=== PATIENT | female | born 2000 | race Caucasian/White ===

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

== ENCOUNTER 2018-03-10 09:10 | Emergency (ER) | payer BC ==
[2018-03-10 09:30] VITALS: BP 142/64; PULSE 94; TEMP 98.5; BMI 33.3
[2018-03-10] MEDS ORDERED: IBUPROFEN 400 MG TABLET (FP) PO ONE ×2 (10:09→10:11)
--- NOTE | 2018-03-10 10:09 | PDOC ---
History of Present Illness - General Chief Complaint: Pain Stated Complaint: PAIN,LT FT Time Seen by Provider: 03/10/18 09:59 Past History - Past Medical History Allergies/Adverse Reactions: Allergies Allergy/AdvReac Type Severity Reaction Status Date / Time No Known Allergies Allergy Verified 03/10/18 09:27 Home Medications: Ambulatory Orders Ibuprofen 800 mg PO TID #30 tablet 03/10/18 COPD: No DVT: No - Immunization History Immunization Up to Date: Yes - Suicide/Smoking/Psychosocial Hx Smoking History: Never smoked Have you smoked in the past 12 months: No Hx Alcohol Use: No Drug/Substance Use Hx: No Substance Use Type: None *Physical Exam - Vital Signs Last Vital Signs Temp Pulse Resp BP Pulse Ox 98.5 F 94 H 18 142/64 99 03/10/18 09:27 03/10/18 09:27 03/10/18 09:27 03/10/18 09:27 03/10/18 09:27 Moderate Sedation - Procedure Monitoring Vital Signs: Procedure Monitoring Vital Signs Temperature 98.5 F 03/10/18 09:27 Pulse Rate 94 H 03/10/18 09:27 Respiratory Rate 18 03/10/18 09:27 Blood Pressure 142/64 03/10/18 09:27 O2 Sat by Pulse Oximetry (%) 99 03/10/18 09:27 *DC/Admit/Observation/Transfer Diagnosis at time of Disposition: Foot pain, left - Discharge Dispostion Disposition: HOME Condition at time of disposition: Stable Decision to Admit order: No - Referrals Referrals: Arvind Lawson MD [Staff Physician] - - Patient Instructions Printed Discharge Instructions: DI for Foot Pain Additional Instructions: X-rays negative for fracture today. It is unclear as to the cause of your foot pain. You may take 800mg of motrin every 8 hours as needed for pain Please wear the Stewart wrap for comfort. Keep the foot elevated while resting. Please follow up with podiatry this week. Return to the emergency department if the numbness and tingling goes up you leg , if he develop worsening pain, or if you have any changes in your symptoms. - Post Discharge Activity Forms/Work/School Notes: Back to Work
== END 2018-03-10 11:57 | disposition home or self-care (01) ==
LOC: JERFT 09:10
DX: M79.672 Pain in left foot (principal)
CPT/HCPCS: 73630-TC-LT; 99281-25

== ENCOUNTER 2018-04-21 16:17 | Emergency (ER) | payer BC ==
[2018-04-21 16:32] VITALS: BP 121/70; PULSE 94; TEMP 99.1; BMI 32.8
--- NOTE | 2018-04-21 16:35 | PDOC ---
Rapid Medical Evaluation Chief Complaint: Allergic Reaction Time Seen by Provider: 04/21/18 16:32 Medical Evaluation: Allergies Allergy/AdvReac Type Severity Reaction Status Date / Time No Known Allergies Allergy Verified 04/21/18 16:29 Vital Signs Temp Pulse Resp BP Pulse Ox 99.1 F 94 H 18 121/70 99 04/21/18 16:30 04/21/18 16:30 04/21/18 16:30 04/21/18 16:30 04/21/18 16:30 04/21/18 16:33 I have performed a brief in-person evaluation of this patient. The patient presents with a chief complaint of: Rash under bilateral breasts. I have ordered the following: Fingerstick, UCG The patient will proceed to the ED for further evaluation. Discharge Disposition - Diagnosis Rash - Referrals - Patient Instructions - Post Discharge Activity
--- NOTE | 2018-04-21 17:01 | PDOC ---
History of Present Illness - General Chief Complaint: Allergic Reaction Stated Complaint: RASH Time Seen by Provider: 04/21/18 16:32 History Source: Patient Exam Limitations: No Limitations Past History - Past Medical History Allergies/Adverse Reactions: Allergies Allergy/AdvReac Type Severity Reaction Status Date / Time No Known Allergies Allergy Verified 04/21/18 16:29 Home Medications: Ambulatory Orders Clotrimazole [Lotrimin 1% Cream -] 1 applic TP BID #1 tube 04/21/18 Tramadol HCl [Ultram] 50 mg PO ASDIR 04/21/18 Asthma: No Cancer: No Cardiac Disorders: No COPD: No DVT: No Diabetes: No HTN: No Seizures: No Thyroid Disease: No - Immunization History Immunization Up to Date: Yes - Suicide/Smoking/Psychosocial Hx Smoking Status: No Smoking History: Never smoked Have you smoked in the past 12 months: No Number of Cigarettes Smoked Daily: 0 Hx Alcohol Use: No Drug/Substance Use Hx: No Substance Use Type: None Hx Substance Use Treatment: No *Physical Exam - Vital Signs Last Vital Signs Temp Pulse Resp BP Pulse Ox 99.1 F 94 H 18 121/70 99 04/21/18 16:30 04/21/18 16:30 04/21/18 16:30 04/21/18 16:30 04/21/18 16:30 - Physical Exam General Appearance: No: Apparent Distress Integumentary: positive: Other (Scaly rash underneath B/L breasts; no rash noted anywhere else on body) Neurologic: positive: Alert, Normal Mood/Affect Moderate Sedation - Procedure Monitoring Vital Signs: Procedure Monitoring Vital Signs Temperature 99.1 F 04/21/18 16:30 Pulse Rate 94 H 04/21/18 16:30 Respiratory Rate 18 04/21/18 16:30 Blood Pressure 121/70 04/21/18 16:30 O2 Sat by Pulse Oximetry (%) 99 04/21/18 16:30 Medical Decision Making - Medical Decision Making 18 y/o F with no sig pmh presents with rash underneath B/L breasts x 1 month, initially started off small but then grew bigger. [place] now pruritic. Has not seen anyone regarding the rash. Denies fever, sob, cp, abd pain, n/v/d. Only medication that patient is currently on is Tramadol. Appears as fungal rash Will check FS 04/21/18 16:52 FS 138 stable for dc 04/21/18 17:25 *DC/Admit/Observation/Transfer Diagnosis at time of Disposition: Cutaneous candidiasis - Discharge Dispostion Disposition: HOME Condition at time of disposition: Stable Decision to Admit order: No - Prescriptions Prescriptions: Clotrimazole [Lotrimin 1% Cream -] 1 applic TP BID #1 tube - Referrals - Patient Instructions Printed Discharge Instructions: DI for Yeast Infection-Skin Additional Instructions: Thank you for choosing . It was a pleasure taking care of you. Likely you have fungal rash Apply the prescribed topical medication twice a week The rash should start to improve Be sure to clean around site well Follow-up your PCP in 2-3 days. Return to the Emergency Department if your symptoms worsen or persist, you have fever, worsening appearance of rash or other concerning symptoms. - Post Discharge Activity
== END 2018-04-21 17:53 | disposition home or self-care (01) ==
LOC: JERFT 16:17
DX: B37.2 Candidiasis of skin and nail (principal)
CPT/HCPCS: 82962; 99281-25

== ENCOUNTER 2018-07-08 11:12 | Emergency (ER) | payer BC ==
[2018-07-08 11:28] VITALS: BP 114/65; PULSE 86; TEMP 98.4; BMI 25.0
[2018-07-08] MEDS ORDERED: DEXAMETHASONE LIQUID 0.5 MG/5 ML 240 ML BULK BOTTLE PO ONE (12:20)
[2018-07-08] MEDS ORDERED: DEXAMETHASONE SOD PHOSPHATE 10 MG/1 ML VIAL ONE (12:23)
[2018-07-08] MEDS ORDERED: diphenhydrAMINE HCL 50 MG CAPSULE PO ONE (12:24)
[2018-07-08] MEDS ORDERED: diphenhydrAMINE HCL 25 MG CAPSULE (FP) PO ONE (12:25)
--- NOTE | 2018-07-08 12:26 | PDOC ---
History of Present Illness - General Chief Complaint: Rash Stated Complaint: RASH ON ARMS Time Seen by Provider: 07/08/18 12:07 - History of Present Illness Initial Comments: 07/08/18 12:21 1-year-old female without comorbidities presents for evaluation of rash times one day without systemic symptoms after starting a new soap Past History - Past Medical History Allergies/Adverse Reactions: Allergies Allergy/AdvReac Type Severity Reaction Status Date / Time No Known Allergies Allergy Verified 07/08/18 11:28 Home Medications: Ambulatory Orders Mometasone Furoate [Elocon] 45 gm TP BID #1 cream..g. 07/08/18 Asthma: No Cancer: No Cardiac Disorders: No COPD: No DVT: No Diabetes: No HTN: No Seizures: No Thyroid Disease: No - Immunization History Immunization Up to Date: Yes - Suicide/Smoking/Psychosocial Hx Smoking Status: No Smoking History: Never smoked Have you smoked in the past 12 months: No Number of Cigarettes Smoked Daily: 0 Information on smoking cessation initiated: No Hx Alcohol Use: No Drug/Substance Use Hx: No Substance Use Type: None Hx Substance Use Treatment: No Review of Systems - Review of Systems Constitutional: No: Fever Integumentary: Yes: Pruritus, Rash *Physical Exam - Vital Signs Last Vital Signs Temp Pulse Resp BP Pulse Ox 98.4 F 86 18 114/65 99 07/08/18 11:24 07/08/18 11:24 07/08/18 11:24 07/08/18 11:24 07/08/18 11:24 - Physical Exam Comments: 07/08/18 12:23 HEAD: NC/AT EYES: Conjuntiva clear Ears: Canals and TM's normal NOSE: No d/c THROAT: Moist mucous membrances, oral pharanx clear, uvula midline NECK: Supple without adenopathy CARDIAC: S1 S2 LUNGS: CTA Full and Equal breath sounds ABDOMEN: Soft NT ND MS: Full ROM in all joints without edema NEUROLOGIC: No gross sensory or motor deficits, NVID SKIN: Normal color and temperature there are raised wheals on bilateral upper extremities. There is a maculopapular component to it. Medical Decision Making - Medical Decision Making 07/08/18 12:23 ALLERGIC rash from new soap. Decadron in the emergency room topical Elocon at home for 5 days and follow-up with dermatology *DC/Admit/Observation/Transfer Diagnosis at time of Disposition: Contact dermatitis - Discharge Dispostion Disposition: HOME Condition at time of disposition: Stable Decision to Admit order: No - Prescriptions Prescriptions: Mometasone Furoate [Elocon] 45 gm TP BID #1 cream..g. - Referrals Referrals: Jennifer Thomas MD [Staff Physician] - - Patient Instructions Printed Discharge Instructions: Contact Dermatitis, DI for Contact Dermatitis Additional Instructions: You may continue with oral Benadryl at home as directed. Return to the emergency room for worsening symptoms. Please use the steroid cream twice daily for the next 5 days until symptoms resolve. If you're symptoms resolved prior to 5 days please start the steroid cream. Please follow-up with dermatology in 1 -2 days for further evaluation and treatment options. To the emergency room should symptoms worsen. Please discontinue the soap that caused the rash. - Post Discharge Activity
== END 2018-07-08 12:37 | disposition home or self-care (01) ==
LOC: JERFT 11:12
DX: L25.9 Unspecified contact dermatitis, unspecified cause (principal)
CPT/HCPCS: 99281-25

== ENCOUNTER 2018-08-25 09:20 | Emergency (ER) | payer BC | END 2018-08-25 10:02 | disposition home or self-care (01) | LOC: JERFT 09:20 ==

== ENCOUNTER 2019-11-21 10:29 | Emergency (ER) | payer BC, OTHER ==
[2019-11-21 10:34] VITALS: BP 144/75; PULSE 98; TEMP 98.2; BMI 33.3
[2019-11-21] MEDS ORDERED: ACETAMINOPHEN 500 MG TABLET (FP) PO ONE (10:53)
[2019-11-21] MEDS ORDERED: ACETAMINOPHEN 500 MG TABLET (FP) ONE (11:12)
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
== END 2019-11-21 12:33 | disposition home or self-care (01) ==
LOC: JER 10:29
DX: S09.90XA Unspecified injury of head, initial encounter (principal); Y04.8XXA Assault by other bodily force, initial encounter
CPT/HCPCS: 70450-TC; 99284-25

== ENCOUNTER 2022-03-07 15:02 | Emergency (ER) | payer BC ==
[2022-03-07 15:15] VITALS: BMI 26.6
[2022-03-07 19:54] VITALS: BP 117/72; PULSE 94; RESP 14
[2022-03-07] MEDS ORDERED: KETOROLAC TROMETHAMINE 30 MG/1 ML VIAL IVPUSH ONE (21:01)
[2022-03-07] MEDS ORDERED: KETOROLAC TROMETHAMINE 30 MG/1 ML VIAL IM ONE (21:13)
[2022-03-07] MEDS ORDERED: KETOROLAC TROMETHAMINE 30 MG/1 ML VIAL ONE (21:19)
== END 2022-03-07 21:25 | disposition home or self-care (01) ==
LOC: JER 15:02
PROC: 3E023GC Introduction of Other Therapeutic Substance into Muscle, Percutaneous Approach (ICD-10-PCS; principal; 2022-03-07)
DX: M54.6 Pain in thoracic spine (principal); T76.11XA Adult physical abuse, suspected, initial encounter
CPT/HCPCS: 84703; 99284-25

== ENCOUNTER 2022-09-06 00:06 | Emergency (ER) | payer BC ==
[2022-09-06 01:27] VITALS: BP 116/74; PULSE 97; RESP 18; TEMP 98.2; BMI 35.6
[2022-09-06 01:27] LABS: BASO % 0.6 % (0-2.0); EOS % 2.9 % (0-4.5); HEMATOCRIT 33.9 % (32.4-45.2); HEMOGLOBIN 11.3 GM/dL (10.7-15.3); LYMPH % 27.1 % (8-40); MCH 27.5 pg (25.7-33.7); MCHC 33.2 g/dl (32.0-36.0); MEAN CELL VOLUME 82.6 fl (80-96); MEAN PLT VOLUME 7.1 fl (7.5-11.1); MONO % 8.2 % (3.8-10.2); NEUT % 61.2 % (42.8-82.8); PLATELET COUNT 352 10^3/uL (134-434); RDW 13.2 % (11.6-15.6); WHITE BLOOD COUNT 8.9 K/mm3 (4.0-10.0)
[2022-09-06 01:34] LABS: INR 1.1 (0.83-1.09); PROTHROMBIN TIME (PATIENT) 12.7 SEC (9.7-13.0)
[2022-09-06 01:50] LABS: POTASSIUM 4.1 mmol/L (3.5-5.1)
[2022-09-06 01:52] LABS: CALCIUM 8.9 mg/dL (8.5-10.1)
[2022-09-06 01:53] LABS: ALBUMIN 3.2 g/dl (3.4-5.0); BLOOD UREA NITROGEN 10.8 mg/dL (7-18)
[2022-09-06 01:56] LABS: CREATININE 0.5 mg/dL (0.55-1.3)
[2022-09-06 01:58] LABS: BILIRUBIN,TOTAL 0.1 mg/dL (0.2-1); TOT PROT 6.9 g/dl (6.4-8.2)
[2022-09-06 02:37] LABS: EPI CELLS >36 /uL (0-25.1); HYALINE CASTS 2 /uL (0-3.1); PH,URINE 6.5 (5.0-8.0); URINE APPEARANCE CLEAR; URINE BILIRUBIN NEGATIVE (NEGATIVE); URINE COLOR YELLOW; URINE GLUCOSE (UA) NEGATIVE (NEGATIVE); URINE KETONE NEGATIVE (NEGATIVE); URINE LEUK ESTERASE 2+ (NEGATIVE); URINE NITRITE NEGATIVE (NEGATIVE); URINE PROTEIN NEGATIVE (NEGATIVE); URINE RBC 7 /uL (0-23.9); URINE UROBILINOGEN 0.2 mg/dL (0.2-1.0); URINE WBC 57 /uL (0-25.8)
[2022-09-06 02:43] LABS: URINE BACTERIA 212.3 /uL (0-1359)
[2022-09-06] MEDS ORDERED: CEPHALEXIN 250 MG/5 ML ORAL SUSPENSION PO ONE (02:48)
[2022-09-06] MEDS ORDERED: CEPHALEXIN MONOHYDRATE 500 MG CAPSULE (UD) ONE (02:51)
== END 2022-09-06 02:55 | disposition home or self-care (01) ==
LOC: JER 00:06
DX: O20.9 Hemorrhage in early pregnancy, unspecified (principal); Z3A.11 11 weeks gestation of pregnancy
CPT/HCPCS: 36415; 76817-TC; 80053; 81003; 84702; 85025; 85610; 85730; 86850; 86900; 86901; 87086; 99284-25

== ENCOUNTER 2023-01-27 23:33 | Emergency (ER) | payer BC ==
[2023-01-27 23:40] VITALS: RESP 18; BMI 36.2
[2023-01-28 00:40] VITALS: BP 118/65; PULSE 109; TEMP 98.4
[2023-01-28 05:50] LABS: EPI CELLS >36 /uL (0-25.1); HYALINE CASTS 0 /uL (0-3.1); PH,URINE 6.5 (5.0-8.0); URINE APPEARANCE CLEAR; URINE BACTERIA 415 /uL (0-1359); URINE BILIRUBIN NEGATIVE (NEGATIVE); URINE COLOR YELLOW; URINE GLUCOSE (UA) NEGATIVE (NEGATIVE); URINE KETONE NEGATIVE (NEGATIVE); URINE LEUK ESTERASE 2+ (NEGATIVE); URINE NITRITE NEGATIVE (NEGATIVE); URINE PROTEIN NEGATIVE (NEGATIVE); URINE RBC 6 /uL (0-23.9); URINE UROBILINOGEN 0.2 mg/dL (0.2-1.0); URINE WBC 20 /uL (0-25.8)
== END 2023-01-28 02:05 | disposition home or self-care (01) ==
LOC: JER 23:33
DX: O26.893 Other specified pregnancy related conditions, third trimester (principal); M54.9 Dorsalgia, unspecified; Z3A.32 32 weeks gestation of pregnancy
CPT/HCPCS: 81003; 87086; 99283-25